=== PATIENT | male | born 1995 | race Caucasian/White ===

== ENCOUNTER 2018-07-15 20:21 | Emergency (ER) | payer OTHER, SELFPAY ==
--- NOTE | 2018-07-15 20:32 | ED_ITS ---
HPI - Back Pain/Injury <GALINA Greene - Last Filed: 07/15/18 22:14> General Chief Complaint: Back Pain/Injury Stated Complaint: hurt back snowboarding today Time Seen by Provider: 07/15/18 20:25 Source: patient Mode of arrival: ambulatory Limitations: no limitations History of Present Illness HPI Narrative: Healthy 22-year-old male that is nonsmoker here for complaint of pain into his mid back. He states that he was snowboarding earlier today when he did a flip causing him to land on his head causing pain to the middle of his back. He denies any direct trauma to the middle of the back. He denies any head pain. He denies any loss of consciousness no nausea vomiting. He denies any pain in the neck. No lower back pain. Pain is limited to the mid back area. He is ambulatory into the emergency room. He denies any loss of bladder or bowel control. No numbness and tingling to the lower extremities he denies any other injuries or concerns at this time. Related Data Allergies Allergy/AdvReac Type Severity Reaction Status Date / Time No Known Drug Allergies Allergy Verified 07/15/18 20:37 Review of Systems <GALINA Greene - Last Filed: 07/15/18 22:14> Constitutional Denies chills, Denies fever(s), Denies lethargy and Denies weakness Eyes Denies change in vision, Denies eye discharge, Denies irritation and Denies loss of vision ENT Ears, Nose, Mouth, and Throat: Denies change in voice, Denies neck pain and Denies sore throat Cardiovascular Denies chest pain, Denies irregular heart rhythm, Denies lightheadedness, Denies palpitations, Denies dyspnea, Denies dyspnea on exertion and Denies orthopnea Respiratory Denies cough, Denies dyspnea, Denies dyspnea on exertion and Denies wheezing Genitourinary Denies hematuria, Denies flank pain, Denies urinary incontinence and Denies urinary urgency Musculoskeletal Denies neck pain Comments: Pain mid back Integumentary/Breasts Denies pruritus, Denies erythema, Denies rash and Denies wounds Neurologic Denies confusion, Denies loss of vision and Denies weakness Psychiatric Denies anxiety, Denies confusion, Denies depression, Denies homicidal ideation and Denies suicidal ideation Endocrine Denies palpitations Hematologic/Lymphatic Denies easy bruising Allergic/Immunologic Denies wheezing Exam <GALINA Greene - Last Filed: 07/15/18 22:14> Initial Vital Signs Initial Vital Signs: Vital Signs Temperature 97.5 F L 07/15/18 20:33 Pulse Rate 90 07/15/18 20:33 Respiratory Rate 20 07/15/18 20:33 Blood Pressure 142/85 H 07/15/18 20:33 Pulse Oximetry 100 07/15/18 20:33 Const General: cooperative and well developed Nutritional Appearance: well nourished Orientation: alert, awake, oriented x3 and not confused HENNE Head: normal to inspection, normocephalic and atraumatic Mouth: oral mucosae normal and moist mucous membranes Eyes Conjunctivae: conjunctivae normal Sclera: sclerae normal Pupils: PERRL EOM: EOM intact bilaterally Neck Neck: normal visual inspection, trachea midline, No lymphadenopathy, No midline deformity and No JVD Lymphatic: No lymphedema Resp Effort & Inspection: normal respiratory effort, able to speak in complete sentences, no respiratory distress and no use of accessory muscles Auscultation: clear to auscultation bilaterally, no rales, no rhonchi and no wheezes Cardio Rate: regular rate Rhythm: regular rhythm Heart Sounds: no click, no gallops, no murmurs and no rubs Pulses: normal peripheral pulses GI Inspection: non-distended Palpation: soft, no hepatosplenomegaly, No guarding, No pulsatile mass and No tender Auscultation: normal bowel sounds Back/Spine/Pelvis Other: Tenderness to the lower thoracic spine area. No deformities. No ecchymosis no swelling. Distal sensation is intact. Distal range of motion is intact. Distal pulses intact no open lesions <Yahir Villarreal DO - Last Filed: 07/16/18 06:03> Initial Vital Signs Initial Vital Signs: Vital Signs Temperature 97.5 F L 07/15/18 20:33 Pulse Rate 90 07/15/18 20:33 Respiratory Rate 07/15/18 20:33 Blood Pressure 142/85 H 07/15/18 20:33 Pulse Oximetry 100 07/15/18 20:33 Course <GALINA Greene - Last Filed: 07/15/18 22:14> Orders Ordered: ED Orders 07/15/18 20:38 CT thoracic spine wo con Stat Vital Signs - 8 hr 07/15/18 20:33 07/15/18 21:41 Temperature 97.5 F L Pulse Rate 90 82 Respiratory Rate 20 16 Blood Pressure 142/85 H 136/79 Pulse Oximetry 100 99 <Yahir Villarreal DO - Last Filed: 07/16/18 06:03> Orders Ordered: ED Orders 07/15/18 20:38 CT thoracic spine wo con Stat Vital Signs - 8 hr 07/15/18 20:33 07/15/18 21:41 Temperature 97.5 F L Pulse Rate 90 82 Respiratory Rate 20 16 Blood Pressure 142/85 H 136/79 Pulse Oximetry 100 99 MDM - Back Pain/Injury <GALINA Greene - Last Filed: 07/15/18 22:14> Imaging Data Thoracic spine: Radiologist's impression: [address] [address] [address] Scan Report Signed Patient: Evens Echevarria MR#: [id number] : 1995 Acct:[id number] Age/Sex: 22 / M Date of Service: 07/15/18 Loc: ED Accession Number: [id number] Procedure: CT thoracic spine wo con Ordering Provider: Zak Roca PROCEDURE: CT THORACIC SPINE WO CON INDICATIONS: Pain into thoracic spine after snowboarding accident TECHNIQUE: Noncontrast 3 mm thick sections acquired through the region of interest in the thoracic spine. Sagittal and coronal reformats were then constructed. For radiation dose reduction, the following was used: automated exposure control. COMPARISON: None. FINDINGS: Image quality: Excellent. Bones: There is normal overall bony alignment. Mild anterior wedging of the T9 vertebral body with anterior and lateral cortical disruption consistent with acute compression fracture. T9 compression fracture results in approximately 15% loss of normal anterior vertebral body height. No retropulsed fragments or kyphosis associated with the T9 compression fracture. T9 vertebral body posterior cortex is not disrupted.. No suspicious sclerotic or lytic bony lesions. Central spinal canal is of normal overall caliber. Soft tissues: Pectus excavatum deformity noted. No paravertebral masses or hematomas. Visualized posteromedial lungs appear clear. IMPRESSION: Acute T9 compression fracture involving the anterior and middle columns results in approximately 15% loss of normal vertebral body height. Dictated by: Cassia Ulrich MD, PhD on 07/15/2018 at 20:57 Approved by: Cassia Ulrich MD, PhD on 07/15/2018 at 21:04 MDM Narrative Medical decision making narrative: CT of the thoracic spine was obtained and shows a compression fracture at to T9 of approximately 15%. Distal CMS is intact. Patient is ambulatory. No loss of bladder or bowel control. Over-the- counter ibuprofen as needed for any discomfort. Follow up with primary care provider. Limit activity that causes discomfort. Slowly geoff activity as tolerated. For any worsening symptoms return to the emergency room. Discharge Plan Departure Patient Disposition: Home Clinical Impression: Compression fx, thoracic spine Discharge Date/Time: 07/15/18 21:44 Interventions: ED Discharge Assessment Last Done: 07/15/18 21:41 Instructions: Vertebral Compression Fracture Activity Restrictions/Additional Instructions: CT of the thoracic spine was obtained and shows a compression fracture at to T9 of approximately 15%. Use [id number] ibuprofen as needed for any discomfort. Follow up with primary care provider. Limit activity that causes discomfort. Slowly advance activity as tolerated. For any worsening symptoms return to the emergency room. Referrals: [facility] [Provider Group] <Yahir Villarreal DO - Last Filed: 07/16/18 06:03> Cosign ED Attending Laura Attestation: I was immediately available in the department for consultation. Documentation has been reviewed. I agree with assessment and plan.
[2018-07-15 20:33] VITALS: BP 142/85; PULSE 90; RESP 20; TEMP 36.4; O2SAT 100
--- NOTE | 2018-07-15 20:38 | DI.CT.S_ITS ---
PROCEDURE: CT THORACIC SPINE WO CON INDICATIONS: Pain into thoracic spine after snowboarding accident TECHNIQUE: Noncontrast 3 mm thick sections acquired through the region of interest in the thoracic spine. Sagittal and coronal reformats were then constructed. For radiation dose reduction, the following was used: automated exposure control. COMPARISON: None. FINDINGS: Image quality: Excellent. Bones: There is normal overall bony alignment. Mild anterior wedging of the T9 vertebral body with anterior and lateral cortical disruption consistent with acute compression fracture. T9 compression fracture results in approximately 15% loss of normal anterior vertebral body height. No retropulsed fragments or kyphosis associated with the T9 compression fracture. T9 vertebral body posterior cortex is not disrupted.. No suspicious sclerotic or lytic bony lesions. Central spinal canal is of normal overall caliber. Soft tissues: Pectus excavatum deformity noted. No paravertebral masses or hematomas. Visualized posteromedial lungs appear clear. IMPRESSION: Acute T9 compression fracture involving the anterior and middle columns results in approximately 15% loss of normal vertebral body height. Dictated by: Cassia Ulrich MD, PhD on 07/15/2018 at 20:57 Approved by: Cassia Ulrich MD, PhD on 07/15/2018 at 21:04
[2018-07-15 21:41] VITALS: BP 136/79; PULSE 82; RESP 16; O2SAT 99
== END 2018-07-15 21:44 | disposition home or self-care (01) ==
PROVIDERS: Emergency Provider Nurse Practitioner Family
DX: M48.54XA Collapsed vertebra, not elsewhere classified, thoracic region, initial encounter for fracture (principal); V00.311A Fall from snowboard, initial encounter
CPT/HCPCS: 72128; 99282; 99283